=== PATIENT | male | born 1975 | race Hispanic/Latino ===

== ENCOUNTER 2017-02-11 12:41 | Emergency (ER) | payer SELFPAY ==
[2017-02-11] MEDS ORDERED: HYDROcodone/Acetaminophen 10/325 mg Tablet ONE (13:07)
[2017-02-11] MEDS ORDERED: Ketorolac Tromethamine 60 MG/2 ML VIAL ONE (13:07)
--- NOTE | 2017-02-11 20:17 | RAD ---
LUMBAR SPINE THREE VIEWS 02/11/17 Aside from slight loss of the normal lumbar lordosis, the bones appear normal. No fracture, disc spa ce narrowing or particular arthritic change was seen. The SI joints are symmetrical. IMPRESSION: No significant findings except for potentially mild loss of lordosis. POS: HOME
== END 2017-02-11 13:44 | disposition home or self-care (01) ==
LOC: BURERS 12:41 → EDBD 12:41 → BURERS 13:44
DX: S39.92XA Unspecified injury of lower back, initial encounter (principal); W22.8XXA Striking against or struck by other objects, initial encounter
CPT/HCPCS: 72100; 96372; J1885

== ENCOUNTER 2017-06-06 19:52 | Emergency (ER) | payer SELFPAY ==
[2017-06-06] MEDS ORDERED: HYDROcodone/Acetaminophen 5/325 mg Tablet ONE (20:09)
== END 2017-06-06 20:18 | disposition home or self-care (01) ==
LOC: BURERS 19:52
DX: S13.9XXA Sprain of joints and ligaments of unspecified parts of neck, initial encounter (principal); V49.9XXA Car occupant (driver) (passenger) injured in unspecified traffic accident, initial encounter
CPT/HCPCS: 99283